=== PATIENT | female | born 1945 | race Hispanic/Latino ===

== ENCOUNTER 2020-07-23 15:44 | Emergency (ER) | payer MEDICARE ==
--- NOTE | 2020-07-23 18:27 | Emergency Department Report ---
ED General Adult HPI - General Chief complaint: Psych Stated complaint: BEHAVIOR/1013 Time Seen by Provider: 07/23/20 17:41 Source: patient, EMS Mode of arrival: Stretcher Limitations: Other - History of Present Illness Initial comments: Patient is a 74-year-old female who is being brought in from her nursing facility due to aggressive behavior. According to reports the patient became angry that no one was going to pick her up for [place]. And this episode of anger she kicked a wall and staff actually wrote out a 1013 for this patient and brought her to the emergency department. Patient states she is very calm now and actually hardly remembers this incident. Patient has a history of dementia. Patient has no actual complaints at this time. Severity scale (0 -10): 0 - Related Data Allergies Allergy/AdvReac Type Severity Reaction Status Date / Time codeine Allergy Unknown Verified 07/23/20 17:53 egg Allergy Unknown Verified 07/23/20 17:53 Penicillins Allergy Unknown Verified 07/23/20 17:53 ED Review of Systems ROS: Stated complaint: BEHAVIOR/1013 Other details as noted in HPI Comment: All other systems reviewed and negative ED Past Medical Hx - Past Medical History Previous Medical History?: Yes Hx Hypertension: Yes Hx Seizures: Yes Hx Psychiatric Treatment: Yes (Depression) Hx Asthma: Yes Hx COPD: Yes Hx Dementia: Yes Additional medical history: CHF - Surgical History Past Surgical History?: Yes Additional Surgical History: Back surgery, date unknown ED Physical Exam - General Limitations: Other General appearance: alert, in no apparent distress - Head Head exam: Present: atraumatic, normocephalic - Eye Eye exam: Present: normal appearance - ENT ENT exam: Present: mucous membranes moist - Neck Neck exam: Present: normal inspection - Respiratory Respiratory exam: Present: normal lung sounds bilaterally. Absent: respiratory distress - Cardiovascular Cardiovascular Exam: Present: regular rate, normal rhythm. Absent: systolic murmur, diastolic murmur, rubs, gallop - GI/Abdominal GI/Abdominal exam: Present: soft, normal bowel sounds - Extremities Exam Extremities exam: Present: normal inspection - Back Exam Back exam: Present: normal inspection - Neurological Exam Neurological exam: Present: alert, oriented X3 - Psychiatric Psychiatric exam: Present: normal affect, normal mood - Skin Skin exam: Present: warm, dry, intact, normal color. Absent: rash ED Course Vital Signs 07/23/20 17:41 Temperature 98.5 F Pulse Rate 69 Respiratory 16 Rate Blood Pressure 139/69 [Left] O2 Sat by Pulse 96 Oximetry ED Medical Decision Making - Medical Decision Making Patient arrived with a 1013 on chart however hospice company is called our emergency department. Family was alerted that the patient was brought here for psych issues. They actually want the patient to be sent to hospice care. Patient is, cooperative at this time. 1013 is been rescinded by me. Patient will be discharged with hospice care. Critical care attestation.: If time is entered above; I have spent that time in minutes in the direct care of this critically ill patient, excluding procedure time. ED Disposition Clinical Impression: Aggressive behavior Disposition: Z-41 HOSPICE- MED FAC Is pt being admited?: No Does the pt Need Aspirin: No Condition: Stable Referrals: AVELINO MORGAN MD [Primary Care Provider] - 3-5 Days Time of Disposition: 18:26
[2020-07-23 20:58] VITALS: BP 121/69
== END 2020-07-23 21:08 ==
LOC: ED 15:44
DX: R45.4 Irritability and anger (principal); I10 Essential (primary) hypertension; F32.9 Major depressive disorder, single episode, unspecified; R56.9 Unspecified convulsions; J44.9 Chronic obstructive pulmonary disease, unspecified; F03.90 Unspecified dementia, unspecified severity, without behavioral disturbance, psychotic disturbance, mood disturbance, and anxiety; Z98.890 Other specified postprocedural states; Z91.012 Allergy to eggs; Z88.0 Allergy status to penicillin; Z88.8 Allergy status to other drugs, medicaments and biological substances